=== PATIENT | female | born 1940 | race Caucasian/White ===

== ENCOUNTER → 2021-05-09 | Outpatient (CLI) | payer OTHER ==
[~2021-05-09] MED LIST: DICLOFENAC SODI75 MG PO; FOLIC ACID1 MG PO; METHOTREXATE 22.5 MG PO; PROTONIX40 M2 PO; REMICADE 1100 MG/VIA IV; TYLENOL EXTRA500 MG PO; VERAPAMIL ER120 MG PO
[2021-05-09 11:31] LABS: HEMATOCRIT 32.4 % (37.0-47.0); HEMOGLOBIN 10.9 gm/dL (12.0-15.0); MCHC 33.8 g/dL (28.0-37.0); MCV 100.7 fL (80.0-100.0); RBC 3.22 mil/uL (4.20-5.00); RDW 14.2 % (10.5-14.5); URINE BILIRUBIN NEGATIVE (Negative); URINE BLOOD NEGATIVE (Negative); URINE CLARITY CLEAR; URINE COLOR YELLOW; URINE GLUCOSE-RANDOM* NEGATIVE (Negative); URINE KETONES TRACE (Negative); URINE LEUKOCYTES-REFLEX NEGATIVE (Negative); URINE NITRITE-REFLEX NEGATIVE (Negative); URINE PROTEIN (DIPSTICK) NEGATIVE (Negative); URINE UROBILINOGEN 0.2 E.U./dl (0.2-1.0); WBC 5.3 thou/uL (4.0-11.0)
[2021-05-09 11:39] LABS: ALBUMIN 3.9 g/dL (3.4-5.0); CALCIUM 8.8 mg/dL (8.5-10.1); POTASSIUM 4.5 mmol/L (3.5-5.1)
[2021-05-09 11:53] LABS: PROTIME 10.9 Seconds (10.5-12.1)
--- NOTE | 2021-05-10 07:11 | EKG ---
[address] [address] ELECTROCARDIOGRAM REPORT Name: KAYLIN MCGREGOR SHAWN Room #: [facility]#: [id number] Admission: 05/09/21 Attend Phys: Sg Petersen MD Discharge: Date of : 42 Report #: [id number] [facility] Test Date: 2021-05-09 Test Time: 11:24:54 Pat Name: KAYLIN MCGREGOR Department: Room: Gender: Production Corrugator: ZEE : 1940 Requested By: Sg Petersen Order Number: [id number] : Chao Cabrera Measurements Intervals [place] Rate: 70 P: 49 AK: 150 QRS: 47 QRSD: 89 T: 31 QT: 424 QTc: 458 Interpretive Statements Sinus rhythm No previous ECG available for comparison Electronically Signed On 05-10-2021 7:11:19 CDT by Chao Cabrera [email or web address] <ELECTRONICALLY SIGNED> By: Chao Cabrera MD, [facility] 05/10/21 0711 1124 1124 Chao Cabrera MD, FACC /EPI
== END ==
LOC: PAC 10:18
PROVIDERS: ATTEND Orthopaedic Surgery
DX: M17.12 Unilateral primary osteoarthritis, left knee (principal)

== ENCOUNTER 2021-05-23 10:53 | Observation (INO) | payer OTHER ==
[~2021-05-23] VITALS: Ht 152.4 cm; Wt 49.6 kg
[2021-05-23 12:04] VITALS: BP 152/69
--- NOTE | 2021-05-23 16:06 | EKG ---
[address] [address] ELECTROCARDIOGRAM REPORT Name: KAYLIN MCGREGOR SHAWN Room #: 438-P [facility]#: [id number] Admission: 05/23/21 Attend Phys: Sg Petersen MD Discharge: Date of : 42 Report #: [id number] [facility] Test Date: 2021-05-23 Test Time: 11:33:29 Pat Name: KAYLIN MCGREGOR Department: Room: [facility] Gender: F Principal Programmer: JARED : 1940 Requested By: Dee Dent Order Number: [id number] MD: Chao Cabrera Measurements Intervals [place] Rate: 112 P: 54 DC: 160 QRS: 45 QRSD: 84 T: 0 QT: 351 QTc: 479 Interpretive Statements Sinus tachycardia Compared to ECG 05/09/2021 11:24:54 Sinus rhythm no longer present Electronically Signed On 05-23-2021 16:06:09 CDT by Chao Cabrera [email or web address] <ELECTRONICALLY SIGNED> By: Chao Cabrera MD, [facility] 05/23/21 1606 1133 32 Chao Cabrera MD, FACC /EPI
[2021-05-23 16:08] VITALS: BP 127/62
[2021-05-23 16:30] VITALS: BP 131/68
[2021-05-23 16:45] VITALS: BP 137/60
[2021-05-23 20:36] VITALS: BP 112/51
[2021-05-24 00:37] VITALS: BP 107/47
[2021-05-24 04:02] VITALS: BP 115/53
--- NOTE | 2021-05-24 15:08 | O ---
[facility] [place] [address] OPERATIVE REPORT Name: KAYLIN MCGREGOR Room #: 438-P [facility] M.RCarolyn#: [id number] Admission: 05/23/21 Attend Phys: Sg Petersen MD Discharge: Date of : 42 Report #: [id number] THIS REPORT FOR: cc: Benita Marie MD, Jennifer L MD Abraham,Sg Hough MD ~ DATE OF SERVICE: 05/23/2021 PREOPERATIVE DIAGNOSIS: Left knee osteoarthritis. POSTOPERATIVE DIAGNOSIS: Left knee osteoarthritis. PROCEDURE: Left total knee arthroplasty using Navio robotic assistance. SURGEON: Sg Petersen MD EXPANDER: Jane Dubon PA-C INDICATION FOR EXPANDER: Throughout the case, extensive retraction, manipulation of the knee was required, this was afforded to me by my city carrier assistant. ANESTHESIA: LMA with an adductor canal block. IMPLANTS: [employer]ocha [employer]hew size 4 Journey II BCS cobalt-chrome femur, size 2 tibia, size 12 constrained polyethylene and size 29 patella. TOURNIQUET TIME: 48 minutes. ESTIMATED BLOOD LOSS: 25 mL. COMPLICATIONS: None. SPECIMENS: None. CONDITION UPON LEAVING THE OR: Stable. INDICATIONS FOR PROCEDURE: The patient is a 80-year-old female with severe valgus left knee osteoarthritis. She had failed conservative measures for this and after discussion with her, she elected for left total knee arthroplasty. DESCRIPTION OF PROCEDURE: Risks, benefits, alternatives, complications were discussed in detail with the patient including but not limited to risk of anesthesia, risk of damage to nerves, arteries, blood vessels, risk for infection, bleeding, risk for continued knee pain and need for reoperation. Informed consent was obtained from the patient. Left knee was appropriately marked in the preoperative holding area. IV Ancef was given for preoperative [address] [address] OPERATIVE REPORT Name: KAYLIN MCGREGOR SHAWN Room #: 438-P [facility] Matilde Omalley#: [id number] Admission: 05/23/21 Attend Phys: Sg Petersen MD Discharge: Date of : 42 Report #: [id number] antibiotics. She was brought to the operating room and placed in the supine position on the operating table. LMA anesthesia was induced without complication. Tourniquet was placed on the left thigh. Left lower extremity was prepped and draped in normal sterile fashion. Timeout was performed, properly identifying the patient and procedure as well as the instrumentation and implants. All in the operating room in agreement. Left lower extremity was exsanguinated and tourniquet was inflated. Tourniquet time was 48 minutes. Standard midline approach to the knee was made with 10 blade through the skin. Dissection was taken down sharply to the fascia and deep flaps were developed medially and laterally. Fresh 10 blade was used to make a medial parapatellar arthrotomy and the knee was inspected. There was severe lateral compartment osteoarthritis with moderate to severe medial and patellofemoral osteoarthritis. ACL and PCL were removed sharply. Reference pins were placed in the femur and the tibia. The knee was digitally mapped using the amiando robotic system. Intraoperative plan was made and we sized the size 4 femur, the size 2 tibia and a 10 spacer. After acceptance of the intraoperative plan, the distal femoral cut was made with Navio bur. Distal femoral cutting block was pinned in place and chamfer cuts were made. Attention was turned to the tibia. Remainder of the menisci removed with Bovie cautery. Tibial resection guide was pinned in place using Navio for placement and tibial resection was made. Flexion and extension gaps were checked and found to have good balance laterally in flexion and extension; however, she was loose medially which is expected given her underlying valgus deformity. It was felt we can make up for this with a constrained implant. Tibia was sized and found to be a size 2. Size 2 tibial trial was placed, pinned and punched. Size 4 femoral trial was placed and the box cut was made. This was then trialed with a size 10 up to a size 12 polyethylene. Size 12 polyethylene demonstrated 1 mm laxity laterally throughout range of motion with up to 3 mm medially. Again, it was felt we can make up for this with a constrained implant. Then, 9 mm of bone was resected from the posterior surface of the patella and a size 29 patellar trial button was placed. Knee was taken through range of motion, found to be stable, found to have good patellar tracking. Trial components were removed. Bone ends were thoroughly irrigated with normal saline. A final size 2 tibia, size 4 Journey II BCS cobalt-chrome femur and a size 29 patella were cemented in place using standard cementation techniques. While the cement cured, a periarticular injection consisting of morphine, ropivacaine, epinephrine, Toradol was placed around the knee joint capsule. After the cement cured, tourniquet was deflated. Hemostasis was obtained with Bovie cautery. A final size 12 constrained polyethylene was placed. A gram of vancomycin was placed deep in the joint. Fascia was closed with 0 Vicryl. Skin was closed with 2-0 Vicryl, 3-0 Monocryl. Dermabond and a ANA dressing was applied. The patient tolerated this [facility] [address] [place] [address] OPERATIVE REPORT Name: KAYLIN MCGREGOR Room #: 438-P [facility] Matilde Omalley#: [id number] Admission: 05/23/21 Attend Phys: Sg Petersen MD Discharge: Date of : 42 Report #: [id number] procedure well and went to recovery room under care of anesthesia postoperatively. <ELECTRONICALLY SIGNED> By: Sg Petersen MD 05/24/21 1508 1624 1701 Sg Petersen MD /nt
[2021-05-24] MEDS ORDERED: TRI-BUFFERED A325 M1 PO (15:11)
[2021-05-24] MEDS ORDERED: HYDROCODON-ACE1 EAC7 PO (15:12)
[2021-05-24] MEDS ORDERED: MS CONTIN15 MG PO (15:12)
[2021-05-24 15:19] VITALS: BP 115/53
== END 2021-05-24 16:17 | disposition home or self-care (01) ==
LOC: OR → TBA 10:54 → OR 11:37 → 4S 15:59 → OR 15:59 → 4S 05-24 16:17
PROVIDERS: ADMIT Orthopaedic Surgery; ATTEND Orthopaedic Surgery
DX: M17.12 Unilateral primary osteoarthritis, left knee (principal)
CPT/HCPCS: 50010; 50101; 50415; 50954; 51130; 51225; 51320; 52001; 52282; 53000; 53078; 54118; 56525; 56527; 56528; 57095; 57103; 57110; 57127; 57179; 58239; 62110; 62900; 70005